=== PATIENT | male | born 1960 | race Caucasian/White ===

== ENCOUNTER 2019-05-22 10:19 | Emergency (ER) | payer MEDICAID ==
--- NOTE | 2019-05-22 12:09 | ED Physician Documentation ---
History of Present Illness - Stated complaint Stated Complaint: LT KNEE PX,MED REFILL - Chief complaint Chief Complaint: General - History obtained from History obtained from: Patient (This is a very pleasant 59-year-old gentleman who had a four-vessel bypass about 8 months ago. He is new to the area and out of all his medications. Not taking his heart meds or his type II diabetic meds. He really has no acute complaints. He notes weight gain because of poor activity, he is got an arthritic left knee. There was no injury there. It does not hurt at rest. It is worse later in the day. He denies pedal edema but his feet are numb, but that is not a new phenomenon either. He is having a lot of trouble with access to primary care.) Review of Systems Ten Systems: 10 systems reviewed and negative Constitutional: reports: Fatigue. denies: Fever, Chills Cardiac: denies: Chest pain / pressure, Palpitations Respiratory: denies: Dyspnea, Cough GI: denies: Abdominal Pain, Nausea, Vomiting Musculoskeletal: denies: Neck pain, Back pain PD PAST MEDICAL HISTORY - Past Medical History Past Medical History: Yes Cardiovascular: Hypertension, Coronary artery disease Endocrine/Autoimmune: Type 2 diabetes - Past Surgical History Past Surgical History: Yes Cardiovascular: CABG - Present Medications Home Medications: Ambulatory Orders Medication Instructions Recorded Confirmed Aspirin 81 mg PO DAILY 05/22/19 05/22/19 Aspirin 81 mg PO DAILY #60 tab.chew 05/22/19 Atorvastatin Calcium 40 mg PO DAILY #60 tablet 05/22/19 Atorvastatin Calcium 40 mg PO DAILY PM 05/22/19 05/22/19 Carvedilol 12.5 mg PO BID 05/22/19 05/22/19 Carvedilol 12.5 mg PO BID #120 tablet 05/22/19 Glipizide 5 mg PO BID 05/22/19 05/22/19 Glipizide 5 mg PO BID #120 tablet 05/22/19 Metformin HCl 1,000 mg PO BID 05/22/19 05/22/19 Metformin HCl 1,000 mg PO BID #120 tablet 05/22/19 Nitroglycerin 0.4 mg SL PRN PRN 05/22/19 05/22/19 Nitroglycerin 0.4 mg SL PRN PRN #1 bot 05/22/19 traZODone [Desyrel] 50 mg PO DAILY PM 05/22/19 05/22/19 traZODone [Desyrel] 50 mg PO HS #60 tablet 05/22/19 - Allergies Allergies/Adverse Reactions: Allergies Allergy/AdvReac Type Severity Reaction Status Date / Time No Known Drug Allergies Allergy Verified 05/22/19 10:28 PD ED PE NORMAL - Vitals Vital signs reviewed: Yes - General General: Alert and oriented X 3, No acute distress - HEENT HEENT: PERRL, EOMI, Pharynx benign - Neck Neck: Supple, no meningeal sign, No bony TTP - Cardiac Cardiac: RRR, No murmur - Respiratory Respiratory: No respiratory distress, Clear bilaterally - Abdomen Abdomen: Non tender - Extremities Extremities: No edema, No calf tenderness / cord, Other (Left knee is nontender, no effusion, full range of motion.) - Neuro Neuro: Alert and oriented X 3, Normal speech Results - Vitals Vitals: Vital Signs - 24 hr 05/22/19 10:22 Temperature 36.4 C L Heart Rate 96 Respiratory 17 Rate Blood Pressure 152/79 H O2 Saturation 96 Oxygen O2 Source Room air - Labs Labs: Laboratory Tests 05/22/19 05/22/19 05/22/19 12:29 12:29 12:29 WBC 8.9 RBC 5.56 Hgb 15.9 Hct 48.4 MCV 87.1 MCH 28.6 MCHC 32.9 RDW 13.2 Plt Count 207 MPV 10.7 Neut # (Auto) 5.9 Lymph # (Auto) 1.9 Desha # (Auto) 0.8 Eos # (Auto) 0.2 Baso # (Auto) 0.1 Absolute Nucleated RBC 0.00 Nucleated RBC % 0.0 Sodium 138 Potassium 4.8 Chloride 102 Carbon Dioxide 28 Anion Gap 8.0 BUN 17 Creatinine 0.9 Estimated GFR (MDRD) 86 L Glucose 141 H Glycated Hemoglobin 7.4 H Estim Average Glucose 166 H Calcium 9.4 Total Bilirubin 0.7 AST 24 ALT 27 Alkaline Phosphatase 87 Total Protein 7.7 Albumin 3.8 Globulin 3.9 Albumin/Globulin Ratio 1.0 Lipase 29 PD MEDICAL DECISION MAKING - ED course ED course: 59-year-old gentleman presents the emergency department with chronic and subacute complaints because of poor access to primary care. He labs were checked and as shown. No evidence of medical emergency. He was given 2 months worth of his medications to help him find some time to find a primary care physician. Departure - Departure Disposition: 01 Home, Self Care Clinical Impression: CAD (coronary artery disease) Qualifiers: Coronary Disease-Associated Artery/Lesion type: [place] artery [place] vs. transplanted heart: [place] heart Associated angina: without angina Qualified Code(s): I25.10 - Atherosclerotic heart disease of [place] coronary artery without angina pectoris Uncontrolled type 2 diabetes mellitus Qualifiers: Glycemic state: with hyperglycemia Qualified Code(s): E11.65 - Type 2 diabetes mellitus with hyperglycemia Osteoarthritis Qualifiers: Osteoarthritis location: knee Osteoarthritis type: primary Laterality: left Qualified Code(s): M17.12 - Unilateral primary osteoarthritis, left knee Condition: Good Record reviewed to determine appropriate education?: Yes Instructions: ED Hyperglycemia Diabetic Prescriptions: Aspirin 81 mg PO DAILY #60 tab.chew Atorvastatin Calcium 40 mg PO DAILY #60 tablet Carvedilol 12.5 mg PO BID #120 tablet Glipizide 5 mg PO BID #120 tablet Metformin HCl 1,000 mg PO BID #120 tablet Nitroglycerin 0.4 mg SL PRN PRN #1 bot PRN Reason: Chest Pain traZODone [Desyrel] 50 mg PO HS #60 tablet Comments: I looked at your insurance companies websites, other options for primary care p hysicians include: Josr Novoa in [place], Freida Argueta in [place], phone number [phone] Breezy Martins in [place], phone number [phone] Nena Evans in [place], phone number [phone]
[2019-05-22 12:34] LABS: BASOPHILS # (AUTO) 0.1 10^3/uL (0.0-0.1); BASOPHILS % (AUTO) 0.7 %; EOSINOPHILS # (AUTO) 0.2 10^3/uL (0.0-0.7); EOSINOPHILS % (AUTO) 2.1 %; HGB - HEMOGLOBIN 15.9 g/dL (14.0-18.0); LYMPHOCYTES # (AUTO) 1.9 10^3/uL (1.5-3.5); LYMPHOCYTES % (AUTO) 21.4 %; MEAN CORPUSCULAR HEMOGLOBIN 28.6 pg (27.0-31.0); MEAN CORPUSCULAR HGB CONC 32.9 g/dL (32.0-36.0); MEAN CORPUSCULAR VOLUME 87.1 fL (80.0-94.0); MEAN PLATELET VOLUME 10.7 fL (7.4-11.4); MONOCYTES # (AUTO) 0.8 10^3/uL (0.0-1.0); NEUTROPHILS # (AUTO) 5.9 10^3/uL (1.5-6.6); NEUTROPHILS % (AUTO) 66.3 %; PLT - PLATELET COUNT 207 10^3/uL (130-450); RED BLOOD COUNT 5.56 10^6/uL (4.70-6.10); RED CELL DISTRIBUTION WIDTH 13.2 % (12.0-15.0); WHITE BLOOD COUNT 8.9 x10^3/uL (4.8-10.8)
[2019-05-22 12:48] LABS: ALBUMIN 3.8 g/dL (3.2-5.5); BILIRUBIN,TOTAL 0.7 mg/dL (0.2-1.0); CALCIUM 9.4 mg/dL (8.5-10.3); CREATININE 0.9 mg/dL (0.6-1.2); TOTAL PROTEIN 7.7 g/dL (6.7-8.2)
[2019-05-22 12:49] LABS: HB2 TOTAL 16.5 g/dL; HEMOGLOBIN A1C 0.95 g/dL; HEMOGLOBIN A1C % 7.4 % (4.6-6.2)
[2019-05-22 13:23] VITALS: BP 169/61
== END 2019-05-22 13:21 | disposition home or self-care (01) ==
LOC: ED 10:19
DX: E11.65 Type 2 diabetes mellitus with hyperglycemia (principal); Z79.84 Long term (current) use of oral hypoglycemic drugs; M17.12 Unilateral primary osteoarthritis, left knee; I25.10 Atherosclerotic heart disease of native coronary artery without angina pectoris; Z95.1 Presence of aortocoronary bypass graft; I10 Essential (primary) hypertension; Z79.82 Long term (current) use of aspirin; Z76.0 Encounter for issue of repeat prescription
CPT/HCPCS: 36415; 80053; 83036; 83690; 85025; 99283; 99284

== ENCOUNTER 2019-12-29 12:02 | Outpatient (CLI) | payer MEDICAID | END 2019-12-29 12:03 | disposition home or self-care (01) | LOC: COV 12:02 | PROVIDERS: ATTEND Family Medicine Sleep Medicine | DX: Z20.828 Contact with and (suspected) exposure to other viral communicable diseases (principal) ==